=== PATIENT | female | born 1985 | race African-American/Black ===

== ENCOUNTER 2020-08-20 07:58 | Day surgery (SDC) | payer OTHER ==
--- OUTSIDE RECORDS SUMMARY | 2020-08-20 08:08 | XMS REPORT | Continuity of Care Document ---
:1985 Author Organization [facility] t Address [address] [place] [address] Care Team Providers Name Role Phone Asked, Pcp Primary Care Physician Unavailable Payers Payer Name Policy Type Policy Number Effective Date Expiration Date S ource Problems Condition Condition Condition Status Onset Resolution Last Treating Co mments Source Name Details Category Date Date Treatment Clinician Date PIH PIH Disease Active 2017-09 [place] ( ( 2-09 Me thodi induced induced 00:00: st hypertensi hypertensi 00 on), on), antepartum antepartum Allergies, Adverse Reactions, Alerts Allergy Allergy Status Severity Reaction(s) Onset Inactive Treating Comm ents Source Name Type Date Date Clinician butorpha DA Active MD 2018- [facility] [place] butorpha DA Active MD [facility] [place] No Known DA Active U [facility] Allergie 1-03 [facility] [place] No Known DA Active U 2017-09 [facility] Drug 2[facility] [place] No Known DA Active U 2003- [facility] Contrast - [facility] [place] No Known DA Active U 2004-0 [facility] Drug [facility] [place] No Known DA Active U 2003-0 [facility] Food [facility] [place] No Known DA Active U 2003-0 [facility] Other 6- [facility] [place] Family History Family Member Diagnosis Comments Start Date Stop Date Source Maternal grandmother Breast cancer [place] [facility] mother Colon cancer [place] [facility] Natural mother Eclampsia [facility] Natural sister Breast cancer [facility] Social History Social Habit Start Date Stop Date Quantity Comments Source History [facility] Meth odist Alcohol Std Drinks History [facility] Meth odist Alcohol Binge Sex Assigned At [facility] ethodist Tobacco use and 2018-12-30 2018-12-30 Never used [facility] ethodist exposure 00:00:00 00:00:00 Alcohol intake 2018-12-30 2018-12-30 Current [facility]ist 00:00:00 00:00:00 non-drinker of alcohol (finding) History SDOH 2018-08-18 2018-08-18 1 [place] [facility] Alcohol Frequency 00:00:00 00:00:00 Smoking Status Start Date Stop Date Source [facility] Medications Ordered Filled Start Stop Current Ordering Indication Dosage Frequency Signature Comments Components Source Medication Medication Date Date Medication? Clinician (SIG) Name Name 2017-09 Yes 1{tbl} QD Take 1 [place] vit,calc76- 2-10 tablet by [facility] jame iron-folic 15:34: mouth st 29 mg iron- 51 daily. 1 mg tablet per tablet NIFEdipine 2017-09 Yes 30mg Q.5D Take 30 mg [place] XL 2-10 by mouth 2 [facility] (PROCARDIA 15:34: (two) st XL) 30 MG 51 times a 24 hr day. tablet docusate 2017-09 Yes 100mg Q.5D Take 100 [place] sodium 2-10 mg by [facility] (COLACE) 15:34: mouth 2 st 100 MG 51 (two) capsule times a day. Procedures This patient has no known procedures. Plan of Care Planned Activity Planned Date Details Comments Source Future Scheduled 2020-04-10 INFLUENZA VACCINE [place] [facility] Test 00:00:00 [code = INFLUENZA VACCINE] Future Scheduled 2008 Screening for [facility] Test 00:00:00 malignant neoplasm of cervix (procedure) [code = 347903779] Encounters Start End Encounter Admission Attending Care Care Encounter Source Date/Time Date/Time Type Type Clinicians Facility Department ID 2019-11-24 2019-11-24 Outpatient [facility] [id number] 09:12:00 09:12:00 jim Javed l Results Test Description Test Time Test Comments Results Result Comments Source [facility] 2018-09-24 [place] 18:32:00 RUN DATE: 09/25/18 [facility] PAGE 1 RUN TIME: 1310 Specimen Inquiry RUN USER: INTERFACE PAT IENT: TANYA REBOLLAR [facility] #: [id number] AGE/SX: / ROOM: [facility] RE09/20/18DARÍO DR: Aruna Franco : 89 BED: A DIS: STATUS: ADM IN TLOC: SPEC #: [id number] RECD: 09/20/18 STATUS: JAMIE HARDIN #: [id number] JULIA: 09/20/18- SUBM DR: Aruna Franco MD ENTERED: 09/23/18 SP TYPE: PLACIII OTHR DR: ORDERED: LEVEL V SURGICA CODES: [id number] - PLACENTA, NOS PROCEDURES: LEVEL V SURGICA (Incomplete) TISSUES: PLACENTA, NOS - PLACENTA CLINICAL HISTORY 33 year old, 37.4 weeks, Y2D2P5W2, , preeclampsia, PIH (wpd) FINAL DIAGNOSIS Placenta, conde gestation: - third trimester villous architecture with congestion - severe decidual vasculopathy - umbilical cord: insertion 4 cm from margin, 3-vessel, 38 cm length - decreased placental weight: actual 394 gm (slightly under 10th percentile) Tissue code 1 CPT code(s): 18160 cds/wpd dt: 09/24/18 GROSS DESCRIPTION The specimen was received in a container, labeled with the patient's name, unit number and designated "placenta". The following attributes are observed: Cord insertion: 4 cm from margin Cord length: 38 cm Number of vessels: 3 Cord color: Blue-restrepo Other cord findings: None surface findings: Steel blue, wrinkled, glistening Vasculature: Displays unremarkable blood vasculature Membranes rupture site: 0.0 cm to margin Membrane color: Restrepo Other membrane findings: Slightly thickened and opaque The trimmed placental weight: 394 gm Disk measurement: 20 x 17 x 3.0 cm in greatest dimension Accessory lobes: None CONTINUED ON NEXT PAGE RUN DATE: 09/25/18 [facility] PAGE 2 RUN TIME: 1310 Specimen Inquiry RUN USER: INTERFACE MARIA T Elder #: [id number] PATIENT: TANYA REBOLLAR #[id number] (Continued)-------- -------- GROSS DESCRIPTION (Continued) Maternal surface: Lobulated and intact Parenchyma: Red, beefy, and spongy Parenchyma lesions: None Cassettes: A through D hz/wpd 09/23/18 @ 1525 MICROSCOPIC DESCRIPTION There is severe decidual vasculopathy. Late third trimester villous architecture with congestion is present. 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 cds/wpd dt: 09/24/18 ----- Signed Carmine James 09/24/18 1832 END OF REPORT
--- OUTSIDE RECORDS SUMMARY | 2020-08-20 08:08 | XMS REPORT | Clinical Summary ---
:1985 Author Organization [facility] Address [address] [place] [address] Care Team Providers Name Role Phone Asked, No Pcp Primary Care Provider Unavailable Allergies No Known Active Allergies Medications Medication Sig Dispensed Refills Start Date End Date Status Take 1 tablet by 0 Act mary vit,[id number] mouth daily. 29 mg iron- 1 mg tablet per tablet NIFEdipine XL Take 30 mg by 0 Ac tive (PROCARDIA XL) 30 MG mouth 2 (two) 24 hr tablet times a day. docusate sodium Take 100 mg by 0 Active (COLACE) 100 MG mouth 2 (two) capsule times a day. Active Problems Problem Noted Date PIH ( induced hypertension), antepartum 08/18 Surgical History Surgery Date Site/Laterality Comments ABDOMINAL DEBRIDEMENT 09/10/2016 - 09/09/2017 AUGMENTATION, BREAST, WITH 09/10/2016 - fat t ransfer midsection PROSTHETIC IMPLANT 09/09/2017 to bottom Medical History Medical History Date Comments Hypertension 08/14/18 in hospital Seizures (HCC) at age 15 Urinary tract infection 08/14/18 Family History Medical History Relation Name Comments Breast cancer Maternal Grandmother Colon cancer Mother Eclampsia Mother Breast cancer Sister Relation Name Status Comments Maternal Grandmother Mother Sister Social History Tobacco Use Types Packs/Day Years Used Date Never Smoker Smokeless Tobacco: Never Used Alcohol Use Drinks/Week oz/Week Comments No Alcohol Habits Answer Date Recorded How often do you have a drink containing alcohol? Never 08/18/2018 How many drinks containing alcohol do you have on a typical Not asked day when you are drinking? How often do you have six or more drinks on one occasion? No t asked Sex Assigned at Date Recorded Not on file Obstetrics History Grav Para Term Pre Abrt (TAB) (SAB) (Ect) Mult Lvng Comments 2 1 1 Date Outcome GA Total Labor/2nd/3rd Weight Sex Delivery Anes PTL Denise A 1 A5 Name Clin Labor 11/16 SAB 5w0 None /2017 d Last Filed Vital Signs Not on file Plan of Treatment Health Maintenance Due Date Last Done Comments CERVICAL CANCER SCREENING 2008 INFLUENZA VACCINE 04/10/2020 Results Not on fileafter 08/20/2019 Advance Directives For more information, please contact: [phone] Type Date Recorded Patient Mortgage Consultant Explanati on Advance Directives, Living Will and Medical Power of Rework Operator Code Status Date Activated Date Inactivated Comments Full Code 08/18/2018 6:41 PM 08/19/2018 7:39 PM Code Status decision reached by: Patient Full Code 08/18/2018 5:09 PM 08/18/2018 6:41 PM Code Status decision reached by: Patient
[2020-08-20] MEDS ORDERED: SCOPOLAMINE HYDROBROMIDE PATCH TD ONE ×2 (08:15→08:17)
[2020-08-20] MEDS ORDERED: Ringers Lactate 1,000 ML IV ONE ×2 (08:17→08:45)
[2020-08-20] MEDS ORDERED: CEFAZOLIN/SWI 1gm 1 GM/10 ML SYR ONE (08:17)
[2020-08-20 08:31] LABS: Specific Gravity 1.015 (1.005-1.030)
[2020-08-20] MEDS ORDERED: VECURONIUM 10 MG/VIAL IV ONE ×2 (08:34→08:58)
[2020-08-20] MEDS ORDERED: CEFAZOLIN SODIUM 1 GM/VIAL ONE (08:44)
[2020-08-20] MEDS ORDERED: NS 0.9% VIAL 50 ML ONE (08:44)
[2020-08-20] MEDS ORDERED: GENTAMICIN SULF 80 MG/2ML INJ ONE (08:44)
[2020-08-20] MEDS ORDERED: LIDOCAINE 1% W/EPI 1:100,000 MDV 50 ML VIAL ONE (08:44)
[2020-08-20] MEDS ORDERED: BACITRACIN 50000 UNIT VIAL ONE (08:45)
[2020-08-20] MEDS ORDERED: propofoL 200 MG/20 ML VIAL IV ONE (08:57)
[2020-08-20] MEDS ORDERED: NS 0.9% VIAL 10 ML ONE (08:57)
[2020-08-20] MEDS ORDERED: MIDAZOLAM HCL 2 MG/2 ML INJ ONE (08:57)
[2020-08-20] MEDS ORDERED: FENTANYL CITR 250 MCG/5 ML ONE ×3 (08:57→13:21)
[2020-08-20] MEDS ORDERED: dexAMETHasone 10 MG/ML VIAL ONE (08:57)
[2020-08-20] MEDS ORDERED: LIDOCAINE 1% MPF 5 ML VIAL ONE (08:57)
[2020-08-20] MEDS ORDERED: ONDANSETRON 4 MG/2 ML VIAL ONE ×2 (08:58→13:54)
[2020-08-20] MEDS ORDERED: LANO/MINERAL OIL/PETRO 3.5 GM ONE (10:06)
[2020-08-20] MEDS ORDERED: LABETALOL 20 MG/4ML SYRINGE IV ONE (11:18)
[2020-08-20] MEDS ORDERED: Mastisol Adhesive Liq ONE (13:23)
[2020-08-20] MEDS ORDERED: GLYCOPYRROLATE 0.2 MG/ML SYR ONE (13:50)
[2020-08-20] MEDS ORDERED: KETOROLAC 30 MG/ML INJ ONE (13:51)
[2020-08-20] MEDS ORDERED: NEOSTIGMINE 1 MG/ML -5 ML ONE (13:54)
[2020-08-20] MEDS: DIPHENHYDRAMINE 50 MG/ML VIAL ONE ×4 (14:20→14:36)
[2020-08-20 15:01] VITALS: TEMP 98.2; O2SAT 99
[2020-08-20] MEDS ORDERED: NALOXONE 0.4 MG/ML VIAL ONE (15:02)
[2020-08-20] MEDS ORDERED: CODEINE 30MG/APAP 300MG TAB PO ONE (15:35)
[2020-08-20] MEDS ORDERED: CODEINE 30MG/APAP 300MG TAB ONE (15:47)
[2020-08-20 15:54] VITALS: BP 122/74
--- NOTE | 2020-08-25 15:15 | OP ---
Surgeon: Alex Spivey MD Preoperative Diagnosis: Breast descent after implants. Postoperative Diagnosis: Breast descent after implants. Procedure Performed: Explant lift. Anesthesia: General. Operative Note: After satisfactory induction of general anesthesia, chest was prepped with DuraPrep, dry sterile drapes placed in the usual manner. A 5 cm template was used to outline the right and left areolas. Incision was made and then transverse and curvilinear incisions were made and deepithelialization was performed with EpiCut or dermabrader. Right side approached first. Electrocautery was used to elevate the flap, 1.5 cm thickness, elevated towards the sternum, clavicle, anterior axillary line. The implant was encountered in the perirectal space and the patient already had mostly dissection done . the dissection was extended cephalad to the clavicle . The implant was removed, was weighed 420 with silicone gel, smooth. The patient then had the inferior incision made full-thickness skin. Then the tissue was formed with a cone with 2-0 PDS suture. the 3 o'clock and strap was sewn over the sternum at 3 o'clock position with 2 Ethibond. Wounds were temporary stapled shut in identical manner. We then returned to the right side, irrigated with antibiotic solution. 10 MARCIA was placed, sewn in place with 2-0 silk and then the dog ear was excised. Wound was closed with 3-0 PDS running subcuticular . the oppisite breast was done in the same technique. The patient was then sat up. Site for new nipple-areolar complex was marked out, tissue was cored out with a 45 template. Nipple areolar complex was delivered, sewn with 4-0 PDS running subcu interrupted followed by 4-0 PDS running subcuticular. Dressings consisted of tincture of benzoin, Steri-Strips, 5 x 5s, fluffs, and Filiberto wrap. The patient tolerated procedure well. The tissue removed was right breast 32 g, left breast 28 g. GH/MODL Voice ID: [id number] Report ID: [id number] [facility]
== END 2020-08-20 16:18 | disposition home health service (06) ==
LOC: OR 07:58
PROVIDERS: ATTEND Specialist
PROC: 0HP Skin and Breast, Removal (ICD-10-PCS; 2020-08-20)
PROC: 0HSV0ZZ Reposition Bilateral Breast, Open Approach (ICD-10-PCS; 2020-08-20)
PROC: 0HPU0YZ Removal of Other Device from Left Breast, Open Approach (ICD-10-PCS; principal; 2020-08-20 09:00)
DX: N62 Hypertrophy of breast (principal); N64.81 Ptosis of breast; Z20.828 Contact with and (suspected) exposure to other viral communicable diseases
CPT/HCPCS: 19330; 81025; 88305; 19316; J2704; J2310; J1200; J1580; J2250; J3010 ×3; J1100; J2710; J0690 ×2; J7120 ×2; J2405 ×2